=== PATIENT | female | born 1990 | race Two or more races ===

== ENCOUNTER 2023-11-06 20:53 | Emergency (ER) | payer OTHER ==
[~2023-11-06] VITALS: Ht 167.6 cm; Wt 62.6 kg
[2023-11-06] MEDS ORDERED: FOLIC ACID1 MG (21:08)
[2023-11-06] MEDS ORDERED: PEPCID AC20 MG (21:08)
[2023-11-06] MEDS ORDERED: PROTONIX40 MG (21:08)
[2023-11-06 22:03] LABS: HEMATOCRIT 34.7 % (36.0-45.00); HEMOGLOBIN 11.6 g/dL (12.0-15.00); MEAN CELL VOLUME 82.2 fL (80.00-100.00); MEAN CORPUSCULAR HEMOGLOBIN 27.6 pg (27.00-32.0); MEAN CORPUSCULAR HGB CONC 33.5 g/dl (32.0-36.0); PLATELET COUNT 237 K/uL (150-450); RED BLOOD COUNT 4.23 M/uL (4.00-6.00); RED CELL DISTRIBUTION WIDTH 14.5 % (11.5-14.5)
[2023-11-06 23:18] LABS: URINE APPEARANCE Clear; URINE BILIRRUBIN Negative (NEGATIVE); URINE BLOOD Large; URINE COLOR Orange; URINE GLUCOSE Negative (NEGATIVE); URINE KETONE Negative (NEGATIVE); URINE LEUKOCYTE Negative; URINE NITRATE Negative; URINE PROTEIN Negative (NEGATIVE); URINE UROBILINOGEN 0.2 E.U./dl
[2023-11-06 23:22] LABS: URINE BACTERIA 118.4 uL (0.0-1933); URINE EPITHELIAL CELLS 10.8 uL (0.0-38.8); URINE RBC 135.7 uL (0.0-20.8); URINE WBC 9.7 uL (0.0-23.2)
== END 2023-11-06 23:59 | disposition home or self-care (01) ==
LOC: ER 20:55
PROVIDERS: General Practice
DX: O20.8 Other hemorrhage in early pregnancy (principal); Z3A.12 12 weeks gestation of pregnancy; Z91.013 Allergy to seafood; K21.9 Gastro-esophageal reflux disease without esophagitis; F41.8 Other specified anxiety disorders

== ENCOUNTER 2023-11-13 09:34 | Outpatient (CLI) | payer OTHER ==
[~2023-11-13 09:34] MED LIST: FOLIC ACID1 MG; PEPCID AC20 MG; PROTONIX40 MG
== END 2023-11-13 09:35 | disposition home or self-care (01) ==
LOC: PRENATAL 09:34
PROVIDERS: ATTEND Obstetrics & Gynecology Maternal & Fetal Medicine
DX: O36.80X0 Pregnancy with inconclusive fetal viability, not applicable or unspecified (principal); Z36.82 Encounter for antenatal screening for nuchal translucency; O09.511 Supervision of elderly primigravida, first trimester; O34.11 Maternal care for benign tumor of corpus uteri, first trimester; Z3A.13 13 weeks gestation of pregnancy

== ENCOUNTER 2024-01-01 08:06 | Outpatient (CLI) | payer OTHER | END 2024-01-01 08:07 | disposition home or self-care (01) | LOC: PRENATAL 08:06 | PROVIDERS: ATTEND Obstetrics & Gynecology Maternal & Fetal Medicine | DX: O35.3XX0 Maternal care for (suspected) damage to fetus from viral disease in mother, not applicable or unspecified (principal); O44.00 Complete placenta previa NOS or without hemorrhage, unspecified trimester; O34.10 Maternal care for benign tumor of corpus uteri, unspecified trimester; Z3A.20 20 weeks gestation of pregnancy ==

== ENCOUNTER 2024-01-13 11:08 | Outpatient (CLI) | payer OTHER ==
[2024-01-13 11:18] VITALS: BP 97/62
[2024-01-13] MEDS ORDERED: IRON325 MG (12:40)
[2024-01-13] MEDS ORDERED: CHILDREN'S ASPI81 MG (12:41)
[2024-01-13 12:43] LABS: HEMATOCRIT 31.9 % (36.0-45.00); HEMOGLOBIN 10.8 g/dL (12.0-15.00); MEAN CELL VOLUME 86.2 fL (80.00-100.00); MEAN CORPUSCULAR HEMOGLOBIN 29.1 pg (27.00-32.0); MEAN CORPUSCULAR HGB CONC 33.8 g/dl (32.0-36.0); PLATELET COUNT 255 K/uL (150-450); RED CELL DISTRIBUTION WIDTH 14.7 % (11.5-14.5)
[2024-01-13 12:45] LABS: PH,URINE 7.5 (5.0-8.0); URINE APPEARANCE Clear; URINE BILIRRUBIN Negative (NEGATIVE); URINE BLOOD Negative; URINE COLOR Yellow; URINE GLUCOSE Negative (NEGATIVE); URINE KETONE Negative (NEGATIVE); URINE LEUKOCYTE Negative; URINE NITRATE Negative; URINE PROTEIN Negative (NEGATIVE); URINE UROBILINOGEN 0.2 E.U./dl
[2024-01-13] MEDS ORDERED: RINGERS SOLUTION,LACTATED 1,000 ML IV SCH (12:45)
[2024-01-13 12:56] LABS: URINE BACTERIA 42.7 uL (0.0-1933); URINE EPITHELIAL CELLS 1.5 uL (0.0-38.8); URINE RBC 3.9 uL (0.0-20.8)
[2024-01-13 13:07] LABS: URINE WBC 0.3 uL (0.0-23.2)
[2024-01-13 13:20] LABS: BILIRUBIN TOTAL 0.21 mg/dL (0.3-1.2); CALCIUM 9.3 mg/dL (8.5-10.1); CREATININE SERUM 0.4 mg/dL (0.55-1.02); GFR 181.64; GLOBULINA 3.8 G/DL (2.4-3.5); POTASSIUM 3.95 mEq/L (3.5-5.1); TOTAL PROTEIN 6.8 gm/dL (6.4-8.2)
[2024-01-13 15:19] VITALS: BP 89/58
[2024-01-13 20:20] VITALS: BP 95/65
[2024-01-13 23:29] VITALS: BP 100/65
[2024-01-14 03:02] VITALS: BP 94/56
[2024-01-14 06:21] VITALS: BP 92/56; O2SAT 100
[2024-01-14 11:19] VITALS: BP 107/64
== END 2024-01-14 12:26 | disposition home or self-care (01) ==
LOC: OBS/DEL 11:08
PROVIDERS: ATTEND Obstetrics & Gynecology
DX: O26.872 Cervical shortening, second trimester (principal); Z3A.22 22 weeks gestation of pregnancy; O26.849 Uterine size-date discrepancy, unspecified trimester; O26.899 Other specified pregnancy related conditions, unspecified trimester; O26.879 Cervical shortening, unspecified trimester

== ENCOUNTER 2024-02-09 13:38 | Outpatient (CLI) | payer OTHER ==
[2024-02-09 11:52] VITALS: BP 101/65
[~2024-02-09 13:38] MED LIST changes: +CHILDREN'S ASPI81 MG; +IRON325 MG
[2024-02-09 14:23] LABS: PH,URINE 7.5 (5.0-8.0); URINE APPEARANCE Clear; URINE BACTERIA 991.2 uL (0.0-1933); URINE BILIRRUBIN Negative (NEGATIVE); URINE BLOOD Negative; URINE COLOR Yellow; URINE EPITHELIAL CELLS 4.6 uL (0.0-38.8); URINE GLUCOSE Negative (NEGATIVE); URINE KETONE Trace (NEGATIVE); URINE LEUKOCYTE Negative; URINE NITRATE Negative; URINE PROTEIN Negative (NEGATIVE); URINE RBC 7.1 uL (0.0-20.8); URINE UROBILINOGEN 0.2 E.U./dl; URINE WBC 6.7 uL (0.0-23.2)
[2024-02-09 14:26] LABS: HEMATOCRIT 33.8 % (36.0-45.00); HEMOGLOBIN 11.6 g/dL (12.0-15.00); MEAN CELL VOLUME 84.9 fL (80.00-100.00); MEAN CORPUSCULAR HEMOGLOBIN 29.1 pg (27.00-32.0); MEAN CORPUSCULAR HGB CONC 34.3 g/dl (32.0-36.0); PLATELET COUNT 267 K/uL (150-450); RED BLOOD COUNT 3.97 M/uL (4.00-6.00); RED CELL DISTRIBUTION WIDTH 15.1 % (11.5-14.5)
[2024-02-09] MEDS ORDERED: RINGERS SOLUTION,LACTATED 1,000 ML IV SCH (14:30)
[2024-02-09 15:22] LABS: ALBUMIN 3.1 gm/dL (3.4-5.0); BILIRUBIN TOTAL 0.29 mg/dL (0.3-1.2); CALCIUM 9.5 mg/dL (8.5-10.1); CREATININE SERUM 0.52 mg/dL (0.55-1.02); GFR 134.19; GLOBULINA 3.9 G/DL (2.4-3.5); POTASSIUM 3.76 mEq/L (3.5-5.1)
[2024-02-09] MEDS ORDERED: CYCLOBENZAPRINE HCL 5 MG TABLET PO NR (18:20)
[2024-02-09] MEDS ORDERED: ACETAMINOPHEN 325 MG TABLET PO NR (18:20)
[2024-02-10 00:45] VITALS: BP 90/60
[2024-02-10 01:50] VITALS: BP 90/60
== END 2024-02-10 08:22 | disposition home or self-care (01) ==
LOC: OBS/DEL 13:38
PROVIDERS: ATTEND Obstetrics & Gynecology
DX: O26.893 Other specified pregnancy related conditions, third trimester (principal); O26.849 Uterine size-date discrepancy, unspecified trimester; O36.8199 Decreased fetal movements, unspecified trimester, other fetus; O60.00 Preterm labor without delivery, unspecified trimester; O34.10 Maternal care for benign tumor of corpus uteri, unspecified trimester; Z3A.27 27 weeks gestation of pregnancy

== ENCOUNTER → 2024-04-05 09:17 | Outpatient (CLI) | payer OTHER | END | disposition home or self-care (01) | LOC: PRENATAL 09:17 | PROVIDERS: ATTEND Obstetrics & Gynecology Maternal & Fetal Medicine | DX: O26.849 Uterine size-date discrepancy, unspecified trimester (principal); O36.8199 Decreased fetal movements, unspecified trimester, other fetus; O09.529 Supervision of elderly multigravida, unspecified trimester; O34.10 Maternal care for benign tumor of corpus uteri, unspecified trimester; O99.019 Anemia complicating pregnancy, unspecified trimester; Z3A.33 33 weeks gestation of pregnancy ==

== ENCOUNTER 2024-05-04 13:24 | Outpatient (CLI) | payer OTHER ==
[2024-05-04 12:25] VITALS: BP 102/68
[2024-05-04 13:57] LABS: HEMATOCRIT 36.1 % (36.0-45.00); HEMOGLOBIN 11.8 g/dL (12.0-15.00); MEAN CELL VOLUME 86.8 fL (80.00-100.00); MEAN CORPUSCULAR HEMOGLOBIN 28.5 pg (27.00-32.0); MEAN CORPUSCULAR HGB CONC 32.9 g/dl (32.0-36.0); PLATELET COUNT 253 K/uL (150-450); RED BLOOD COUNT 4.15 M/uL (4.00-6.00); RED CELL DISTRIBUTION WIDTH 15.4 % (11.5-14.5)
[2024-05-04 14:00] LABS: PH,URINE 6.5 (5.0-8.0); URINE APPEARANCE Clear; URINE BILIRRUBIN Negative (NEGATIVE); URINE BLOOD Negative; URINE COLOR Yellow; URINE GLUCOSE Negative (NEGATIVE); URINE KETONE Negative (NEGATIVE); URINE LEUKOCYTE Trace; URINE NITRATE Negative; URINE PROTEIN Negative (NEGATIVE)
[2024-05-04 14:04] LABS: URINE BACTERIA 5064.5 uL (0.0-1933); URINE EPITHELIAL CELLS 25.8 uL (0.0-38.8); URINE RBC 4.8 uL (0.0-20.8); URINE WBC 82.7 uL (0.0-23.2)
[2024-05-04 14:23] LABS: INR < 0.93; PARTIAL THROMBOPLASTIN TIME 26.2 SECONDS (22.0-34.0); PROTHROMBIN TIME 10.1 SECONDS (9.0-11.5)
[2024-05-04 14:38] LABS: URINE CAST 0.44 uL (0.0-1.40)
[2024-05-04 14:41] LABS: BILIRUBIN TOTAL 0.29 mg/dL (0.3-1.2); CALCIUM 9.8 mg/dL (8.5-10.1); CREATININE SERUM 0.48 mg/dL (0.55-1.02); GFR 147.18; GLOBULINA 3.9 G/DL (2.4-3.5); POTASSIUM 4.52 mEq/L (3.5-5.1); TOTAL PROTEIN 6.9 gm/dL (6.4-8.2)
[2024-05-04 15:07] VITALS: BP 114/72
[2024-05-04] MEDS ORDERED: RINGERS SOLUTION,LACTATED 1,000 ML IV SCH (15:15)
[2024-05-04 17:44] VITALS: BP 114/72
[2024-05-05] MEDS ORDERED: PRENATAL TABLE1 EAC4 PO (15:26)
== END 2024-05-04 17:48 | disposition home or self-care (01) ==
LOC: OBS/DEL 13:24
PROVIDERS: General Practice; ATTEND Obstetrics & Gynecology
DX: O26.893 Other specified pregnancy related conditions, third trimester (principal); R10.2 Pelvic and perineal pain; Z3A.37 37 weeks gestation of pregnancy

== ENCOUNTER 2024-05-05 15:17 | Inpatient (IN) | payer OTHER ==
[2024-04-28 12:39] LABS: INR < 0.93; PARTIAL THROMBOPLASTIN TIME 26.9 SECONDS (22.0-34.0); PROTHROMBIN TIME 9.9 SECONDS (9.0-11.5)
[~2024-05-05] VITALS: Ht 167.6 cm; Wt 71.7 kg
[2024-05-05 15:13] VITALS: BP 109/73
[2024-05-05] MEDS ORDERED: PRENATAL TABLE1 EAC4 PO (15:26)
[2024-05-05] MEDS ORDERED: RINGERS SOLUTION,LACTATED 1,000 ML IV SCH (15:30)
[2024-05-05 19:12] VITALS: BP 117/73
[2024-05-05] MEDS ORDERED: FAMOTIDINE/PF 20 MG/2 ML VIAL IV PRN (20:30)
[2024-05-05 23:14] VITALS: BP 111/72
[2024-05-06] VITALS (9 sets, daily range): BP systolic 99–131; BP diastolic 59–75
[2024-05-06] MEDS ORDERED: OXYTOCIN 500 ML IV SCH (08:15)
[2024-05-06] MEDS ORDERED: CHLORHEXIDINE GLUCONATE 120 ML BOTTLE TOP ONE ×2 (14:48→16:45)
[2024-05-06] MEDS ORDERED: OXYTOCIN 20 UNITS/1000ML RL PIGGYBAG IV ONE (14:48)
[2024-05-06] MEDS ORDERED: ERYTHROMYCIN BASE OPHT 1GM EACH TUBE OP ONE ×2 (14:48→16:45)
[2024-05-06] MEDS ORDERED: LIDOCAINE HCL 1% 10ML VIAL ONE ×3 (14:49→16:57)
[2024-05-06] MEDS ORDERED: CEFAZOLIN SODIUM 1,000 MG VIAL ONE (16:05)
[2024-05-06] MEDS ORDERED: OXYTOCIN 1,000 ML IV SCH ×2 (16:45→17:45)
[2024-05-06] MEDS ORDERED: LIDOCAINE HCL 1% 10ML VIAL IJ ONE ×2 (16:45→17:00)
[2024-05-06] MEDS ORDERED: CEFAZOLIN SODIUM 1,000 MG VIAL IV ONE (16:45)
[2024-05-06] MEDS ORDERED: CHLORHEXIDINE GLUCONATE 120 ML BOTTLE TOP SCH (17:45)
[2024-05-06] MEDS ORDERED: IBUprofen 400 MG TABLET PO PRN (17:45)
[2024-05-06 22:36] LABS: HEMATOCRIT 32.9 % (36.0-45.00); HEMOGLOBIN 10.6 g/dL (12.0-15.00); MEAN CORPUSCULAR HEMOGLOBIN 28.2 pg (27.00-32.0); MEAN CORPUSCULAR HGB CONC 32.4 g/dl (32.0-36.0); PLATELET COUNT 235 K/uL (150-450); RED BLOOD COUNT 3.78 M/uL (4.00-6.00); RED CELL DISTRIBUTION WIDTH 15.5 % (11.5-14.5)
[2024-05-07 00:07] VITALS: BP 108/67
[2024-05-07] MEDS ORDERED: CEFAZOLIN SODIUM 1,000 MG VIAL IV SCH (01:00)
[2024-05-07 08:00] VITALS: BP 96/62
[2024-05-07] MEDS ORDERED: DOCUSATE SODIUM 100MG CAP PO SCH (09:00)
[2024-05-07 16:00] VITALS: BP 109/71
[2024-05-07] MEDS ORDERED: ACETAMINOPHEN 500 MG GEL..CAP PO PRN (18:30)
[2024-05-07] MEDS ORDERED: MEASLES,MUMPS,RUBELLA VACC/PF 1 VIAL VIAL SUBCUTANEO ONE (18:30)
[2024-05-08 00:36] VITALS: BP 98/63
[2024-05-08 08:00] VITALS: BP 104/68
== END 2024-05-08 16:04 | disposition home or self-care (01) | DRG 768 ==
LOC: OB/GYN → LDR 15:17 → OB/GYN 05-06 17:00
PROVIDERS: General Practice; ADMIT Student in an Organized Health Care Education/Training Program; ATTEND Student in an Organized Health Care Education/Training Program
PROC: 4A1HXCZ Monitoring of Products of Conception, Cardiac Rate, External Approach (ICD-10-PCS; 2024-05-05)
PROC: 10E0XZZ Delivery of Products of Conception, External Approach (ICD-10-PCS; principal; 2024-05-06)
PROC: 0DQP0ZZ Repair Rectum, Open Approach (ICD-10-PCS; 2024-05-06)
DX: O70.3 Fourth degree perineal laceration during delivery (principal); Z37.0 Single live birth; Z3A.37 37 weeks gestation of pregnancy